=== PATIENT | female | born 1960 | race Caucasian/White ===

== ENCOUNTER 2018-12-03 13:28 | Emergency (ER) | payer MEDICAID ==
[~2018-12-03] VITALS: Ht 157.5 cm; Wt 68.0 kg
[2018-12-03] MEDS ORDERED: methylPREDNISolone SOD SUCC 125 MG/2 ML VL IM ONE (14:00)
[2018-12-03 14:19] LABS: Albumin 3.6 g/dL (3.4-5.0); Calcium 8.8 mg/dL (8.5-10.1); Potassium 4.4 mmol/L (3.5-5.1)
[2018-12-03 14:22] LABS: Hematocrit 45.6 % (36.0-46.0); Mean Corpuscular Hemoglobin 28.3 pg (28.0-32.0); Mean Corpuscular Hgb Conc. 32.9 g/dL (32.0-36.0); Platelet Count (auto) 407 10^3/uL (140-450); Red Blood Cells 5.31 10^6/uL (4.0-5.20); Red Cell Distribution Width 14.7 % (11.8-14.3); White Blood Cell 9.6 10^3/uL (4.4-10.8)
[2018-12-03 14:31] LABS: Band Neutrophils % (manual) 0; Basophils % (manual) 0 (0.0-2.0); Blast Cells 0; Metamyelocytes % 0; Myelocytes % 0; Promyelocytes % 0; Reactive Lymphocytes 0
[2018-12-03 14:37] LABS: BUN/Creatinine Ratio 12.3; Bilirubin, Total 0.3 mg/dL (0.2-1.0); Total Protein 7.7 g/dL (6.4-8.2)
[2018-12-03 14:55] LABS: Eosinophils % (manual) 16 (0-7); Lymphocytes % (manual) 26 (10.0-50.0); Monocytes % (manual) 4 (0-12)
[2018-12-03 16:46] VITALS: BP 157/78
== END 2018-12-03 16:51 | disposition home or self-care (01) ==
LOC: ER 13:34
DX: J40 Bronchitis, not specified as acute or chronic (principal); E11.9 Type 2 diabetes mellitus without complications; E78.5 Hyperlipidemia, unspecified; I10 Essential (primary) hypertension
CPT/HCPCS: 36415; 71046; 80053; 85007; 85027; 93005; 96372; 99284; J2930

== ENCOUNTER 2019-08-08 11:10 | Emergency (ER) | payer MEDICAID ==
[~2019-08-08] VITALS: Ht 157.5 cm; Wt 72.6 kg
[2019-08-08 11:21] VITALS: BP 119/86
[2019-08-08] MEDS ORDERED: ONDANSETRON ODT 4 MG TAB PO ONE (13:45)
[2019-08-08] MEDS ORDERED: traMADol HCL 50 MG TAB PO ONE (14:15)
== END 2019-08-08 15:42 | disposition home or self-care (01) ==
LOC: ER 11:10
DX: S06.0X0A Concussion without loss of consciousness, initial encounter (principal); S13.4XXA Sprain of ligaments of cervical spine, initial encounter; J45.909 Unspecified asthma, uncomplicated; E11.9 Type 2 diabetes mellitus without complications; E78.00 Pure hypercholesterolemia, unspecified; I10 Essential (primary) hypertension; V49.9XXA Car occupant (driver) (passenger) injured in unspecified traffic accident, initial encounter; Y93.89 Activity, other specified; Y92.89 Other specified places as the place of occurrence of the external cause; Y99.8 Other external cause status
CPT/HCPCS: 70450; 72125; 99284; Q0162